=== PATIENT | male | born 1980 | race African-American/Black ===

== ENCOUNTER 2025-01-03 04:07 | Emergency (ER) | payer BC, SELFPAY ==
--- OUTSIDE RECORDS SUMMARY | 2017-10-17 04:00 | XMS_ITS | Continuity of Care Document ---
Author Organization [facility] Address [address] [place] [address] Phone Care Team Providers [facility] [employer] Developer Name Role Phone Terry LUIS Augusto Unavailable Unavailable Allergies, Adverse Reactions, Alerts Substance Reaction Status Criticality No Known Allergies Active No Inform ation Medications Medication Instructions Dosage Effective Dates (start - stop) Status Comments nifedipine ER 30 mg tablet,extended release take 1 tablet by oral route every day 30 MG - Active Procedures Procedure Date Extract; Erupted Th/exposted Rt 018 Extract; Erupted Th/exposted Rt 018 Extract; Erupted Th/exposted Rt 018 Limited Oral Eval Panoramic Film Advance Directives Directive Yes / No Effective Date File Name No Information Encounters Encounter Description Practice Location Reason(s) For Visit Diagnoses Date Provider Providers Copied on Encounter [facility], [address], [place], [id number], [place] tel:[phone] Dental Clinic dental limited (chief complaint) Encounter for screening for dental disorder Terry Casas. [address], [place], [id number], [place]. tel:[phone] Family History Family Member Type Diagnosis Age At Onset Mother Problem (finding) Alive and well Father Problem (finding) Alive and well Payers Payer name Insurance type Covered libertarian ID Authoriza hammad(s) D [facility] [id number] D Medicaid [facility] [id number] Social History Type Description Quantity Date Captured Comments Alcohol Use Details Unknown Caffeine Use Details Unknown Tobacco Use Status Cigarette smoker Smoking Status Current every day smoker Smoking Tobacco Use Details Cigarette: Age Started: 32 Cigarette: No Details Available Sex Male Sexual Orientation Straight or heterosexual Gender Identity Male Vital Signs Date / Time: Height Weight BMI Pulse Rate Blood Pressure Temperature Respiratory Rate Body Surface Area Head Circumference Head Circ. Percentile Wt./Simone. Percentile BMI percentile Pulse Ox Inhaled Ox 8:03 AM 65 /min 122/77 mm[Hg] Chief Complaint And Reason For Visit From encounter dated '10/17/2017 08:00'. dental limited (chief complaint). Description: dental EMERGENCY Reason For Referral Reason For Referral No Information History Of Present Illness Encounter Date Complaint History Of Prese nt Illness dental limited dental EMERGENCY Functional Status Date Functional Assessmen t No Information Instructions Date Instruction Additional Infor mation No Information Assessments Type Assessment Date assessment Encounter for screening for dent al disorder Patient Care Teams Name Effective Dates (start - stop) Status Members No Information
[2025-01-03 04:12] VITALS: BP 113/69; PULSE 68; TEMP 36.9; O2SAT 96; BMI 23.3
--- NOTE | 2025-01-03 04:25 | ED.DENTAL1 ---
HPI - Dental/Oral General Chief complaint: Dental/Oral Stated complaint: mouth pain Time Seen by Provider: 01/03/25 04:18 Mode of arrival: ambulance History of Present Illness HPI Narrative: cc - left facial swelling and cheek pain Started 2 days ago but this morning the pt woke with pain in the upper left cheek and swelling in the left cheek/under the left eye that was not present before, so he decided to come to the ED for evaluation. He admits to pain in the gums of the teeth in the left upper rear mouth. He has not called a dentist or seen anyone else about this. Related Data Previous Rx's ?Medication ?Instructions ?Recorded clindamycin HCl 150 mg capsule 450 mg (3 x 150 mg) PO TID 7 days 01/03/25 #63 caps Allergies Allergy/AdvReac Type Severity Reaction Status Date / Time No Known Drug Allergies Allergy Verified 01/03/25 04:16 PFSH PFSH Social History Little interest or pleasure in doing things: not at all Feeling down, depressed, or hopeless: not at all Exam Narrative Exam Narrative: Afebrile General: The patient is comfortable, alert and oriented x3, well appearing, non toxic in no apparent distress. Head: Atraumatic and normocephalic. Eyes: Normal conjunctiva ENT: The oropharynx is normal. No pharyngeal erythema, uvular edema, tonsillar exudates, asymmetry or trismus. Uvula is midline. Mouth is normal to inspection with the exception of a pain on percussion of the gums that correlate with teeth #13-16. There is left facial asymmetry and tenderness to the left maxilla with possible abscess formation. Floor of the mouth is soft. No tenderness in the submental or submandibular space. No tongue elevation or deviation. The patient has no evidence of gingivitis or fractured teeth. Airway is patent. Neck: The neck demonstrates normal range of motion. No meningeals signs are present. No stridor. No masses or lymphandenopathy noted. Respiratory: No acute distress, lungs are clear to auscultation, no wheezing, rhonchi, or rales noted. No stridor or retractions are noted. Cardiovascular: Regular rate and rhythm Skin: The skin exam shows no evidence of rashes Neuro: Alert and oriented x4, normal speech Lymphatic: No cervical lymphadenopathy Constitutional Vital Signs, click to edit/add: Last Vital Signs Temp 98.5 F 01/03/25 04:12 Pulse 68 01/03/25 04:12 Resp 16 01/03/25 04:12 BP 113/69 01/03/25 04:12 Pulse Ox 96 01/03/25 04:12 O2 Del Method Room Air 01/03/25 04:12 Course Vital Signs Vital signs: Vital Signs Temperature 98.5 F 01/03/25 04:12 Pulse Rate 68 01/03/25 04:12 Respiratory Rate 16 01/03/25 04:12 Blood Pressure 113/69 01/03/25 04:12 Pulse Oximetry 96 01/03/25 04:12 Oxygen Delivery Method Room Air 01/03/25 04:12 Temperature 98.5 F 01/03/25 04:12 Pulse Rate 68 01/03/25 04:12 Respiratory Rate 16 01/03/25 04:12 Blood Pressure 113/69 01/03/25 04:12 Pulse Oximetry 96 01/03/25 04:12 Oxygen Delivery Method Room Air 01/03/25 04:12 MDM - Dental/Oral MDM Narrative Medical decision making narrative: The patient has signs of odontogenic infection that is not tracking into the left maxilla. He was given clindamycin 4 to 50 mg orally in the emergency department and then discharged home with a prescription for the same dose to be given 3 times a day for 7 days. He says he has a local dentist in the area that he will call on SaturdayJanuary 04, 2025 in order to schedule appropriate appointment for follow-up. Tylenol and motrin to be taken for pain. Discharge Plan Discharge Chief Complaint: Dental/Oral Clinical Impression: Odontogenic infection of jaw, Left facial swelling Patient Disposition: Home, Self-Care Time of Disposition Decision: 04:24 Prescriptions / Home Meds: New clindamycin HCl 150 mg capsule 450 mg PO TID 7 Days Qty: 63 0RF Print Language: Arabic Instructions: Dental Abscess (ED) Referrals: Physician,Non-Staff, MD [Primary Care Provider] - 1 week
[2025-01-03] MEDS: CLINDAMYCIN HCL 150 MG CAPSULE 450 MG PO (04:29)
== END 2025-01-03 04:35 | disposition home or self-care (01) ==
PROVIDERS: Emergency Provider Emergency Medicine
DX: K04.7 Periapical abscess without sinus (principal); R22.0 Localized swelling, mass and lump, head
CPT/HCPCS: 99283